=== PATIENT | female | born 1985 | race Caucasian/White ===

== ENCOUNTER 2016-06-30 10:16 | Emergency (ER) | payer SELFPAY ==
--- NOTE | 2016-06-30 10:30 | ED Physician Documentation ---
General Adult - HISTORIAN Historian: patient - HPI Chief Complaint: Fever Onset: days ago (2 days) Timing: pain lasting Severity: moderate Further Comments: yes (2 day history of cough, productive of yellow phlegm, no blood noted. SOB, has some asthma as a child. No sore throat, has body aches, weak, Has had a headache. Has children at home with similar symptoms.) - ROS CONST: fever (not sure how high), chills CVS/RESP: shortness of breath, cough GI/: vomiting (with coughing). denies: abdominal pain, problems urinating NEURO/PSYCH: headache - PAST HX Past History: none Other History: other (history of asthma as a child) Allergies/Adverse Reactions: Allergies Allergy/AdvReac Type Severity Reaction Status Date / Time levofloxacin [From Levaquin] Allergy Verified 10/06/15 16:41 amoxicillin AdvReac Itchy Skin Verified 10/06/15 16:41 Home Medications: Ambulatory Orders Medication Instructions Recorded Azithromycin [Zithromax] 250 mg PO QD #6 tablet 06/30/16 - SOCIAL HX Smoking History: less than 1 pack/day Alcohol Use: none Drug Use: none - FAMILY HX Family History: No - VITAL SIGNS Vital Signs: Vital Signs Temp Pulse Resp BP Pulse Ox 114/75 10/06/15 16:35 - REVIEWED ASSESSMENTS Nursing Assessment Reviewed: Yes Vitals Reviewed: Yes ED Results Lab/Radiology - Radiology Radiology Impressions: chest x-ray normal General Adult Physical Exam - PHYSICAL EXAM GENERAL APPEARANCE: mild distress EENT: pharynx normal, no signs of dehydration. No: pharyngeal erythema NECK: normal inspection, supple. No: lymphadenopathy RESPIRATORY: no resp distress, chest non-tender, wheezes (mild with forced expiration), rales (noted bilaterlly), rhonchi (few scattered on the right) CVS: heart sounds normal, equal pulses, no murmur, tachycardia ABDOMEN: soft, no organomegaly, normal bowel sounds, no abdominal bruit, no distension, non-tender BACK: normal inspection, no CVA tenderness SKIN: warm/dry, normal color EXTREMITIES: non-tender, normal range of motion NEURO: oriented X3, mood/affect nml, cognition normal Discharge Clincal Impression: RML pneumonia Qualifiers: Pneumonia type: due to unspecified organism Qualified Code(s): J18.1 - Lobar pneumonia, unspecified organism Referrals: Primary Doctor,No [Primary Care Provider] - 2 Days Additional Instructions: Drink a lot of fluids, take azithromycin as directed. If your breathing gets worse to let me know. Take some Mucinex as needed to help with the congestion. Home Medications: Ambulatory Orders Azithromycin [Zithromax] 250 mg PO QD #6 tablet 06/30/16 Condition: Stable Disposition: 01 HOME, SELF-CARE Decision to Admit: NO Date of Decison to Admit: 06/30/16 Decision Time: 10:47
[2016-06-30] MEDS ORDERED: IPRATROPIUM/ALBUTEROL SULFATE 3 ML AMPUL.NEB NEB ONE (10:39)
[2016-06-30] MEDS ORDERED: 0.9 % SODIUM CHLORIDE 1,000 ML IV ONE (11:24)
[2016-06-30] MEDS: 0.9 % SODIUM CHLORIDE 1,000 ML IV SCH (11:25)
[2016-06-30 11:31] LABS: MEAN CORPUSCULAR HEMOGLOBIN 30.8 pg (28.0-34.0)
[2016-06-30] MEDS: IPRATROPIUM/ALBUTEROL SULFATE 3 ML AMPUL.NEB NEB ONE (11:34)
[2016-06-30 11:50] LABS: EOSINOPHILS % 1 % (0-7); MONOCYTES % 2 % (0-11); SEGMENTED NEUTROPHILS % 91 % (39-79)
[2016-06-30 11:58] LABS: eGFR (African) > 60; eGFR (Non-African) > 60
--- NOTE | 2016-06-30 13:08 | Diagnostic Imaging Report ---
[facility] [id number] [facility].[address] [id number] Report Submission Date: Jun 30, 2016 12:37:35 PM [employer] Patient Study Name: SHAHID SPANN Date: Jun 30, 2016 11:54:04 AM [employer] Modality Type: CR Gender: F Description: CHEST : 85 Institution: [facility] Physician BYRON BARROS - ER Chest -two views CLINICAL HISTORY: Cough and fever for 3 days. FINDINGS: Examination of the chest in PA and lateral views with no prior film for comparison demonstrates infiltrate the right middle lobe seen best on the lateral view. Cardiovascular and mediastinal silhouettes are within normal limits. The bony thorax is intact. IMPRESSION: Right middle lobe pneumonia. Electronically signed on Jun 30, 2016 12:37:35 PM [employer] by: Prem DANIELLE
[2016-06-30 13:11] VITALS: BP 115/69
== END 2016-06-30 13:06 | disposition home or self-care (01) ==
LOC: ED 10:16
DX: J18.1 Lobar pneumonia, unspecified organism (principal); F17.210 Nicotine dependence, cigarettes, uncomplicated
CPT/HCPCS: 71020; 80053; 85025; 87400; J7030; 99283; 99284; S1016

== ENCOUNTER 2019-01-25 19:46 | Emergency (ER) | payer SELFPAY ==
--- NOTE | 2019-01-25 20:01 | ED Physician Documentation ---
General Adult - HISTORIAN Historian: patient - HPI Stated Complaint: wheezing, sob Chief Complaint: General Adult Onset: hours Timing: still present Severity: moderate Further Comments: yes (Pt is a 33 yo female with hx asthma in childhood who developed sob and wheezing since this am. Pt had a sore throat yesterday and has nasal, sinus congestion. No fever.) - ROS CONST: other (malaise) EYES/ENT: sore throat, nasal congestion CVS/RESP: shortness of breath, other (wheezing) GI/: none MS/SKIN/LYMPH: none - PAST HX Past History: asthma, other (anxiety/depression) Allergies/Adverse Reactions: Allergies Allergy/AdvReac Type Severity Reaction Status Date / Time levofloxacin [From Levaquin] Allergy Rash Verified 01/25/19 20:01 amoxicillin AdvReac Itchy Skin Verified 01/25/19 20:01 Home Medications: Ambulatory Orders Medication Instructions Recorded Hydroxyzine HCl [Atarax] 1 tab PO TID PRN 01/25/19 Propranolol HCl [Inderal] 40 mg PO BID 01/25/19 Vortioxetine Hydrobromide 1 tab PO DAILY 01/25/19 [Brintellix] - SOCIAL HX Smoking History: cigarettes - FAMILY HX Family History: No - VITAL SIGNS Vital Signs: Vital Signs Temp Pulse Resp BP Pulse Ox 115/69 06/30/16 13:06 - REVIEWED ASSESSMENTS Nursing Assessment Reviewed: Yes Vitals Reviewed: Yes Progress - Progress Progress: Duoneb HFN Solu-medrol 125 mg IV Pulmicort HFN Albuterol HFN Albuterol HFN improved Rx Albuterol (90 mcg/spray) MDI. Take 2 puffs every 4 to 6 hours as needed for wheezing. Rx Prednisone 50 mg. Take one daily for 5 days. Rx Azithromycin 250 mg. Take one daily for 5 days. - EKG/XRAY/CT XRAY: chest (No active pulmonary disease.) General Adult Physical Exam - PHYSICAL EXAM GENERAL APPEARANCE: moderate distress EENT: ENT inspection normal, pharynx normal NECK: normal inspection, supple RESPIRATORY: wheezes, rhonchi CVS: reg rate & rhythm, heart sounds normal ABDOMEN: soft, no organomegaly, normal bowel sounds BACK: normal inspection, no CVA tenderness SKIN: warm/dry, normal color EXTREMITIES: non-tender, normal range of motion, no evidence of injury, no edema NEURO: oriented X3, motor nml, sensation nml Discharge Clincal Impression: Asthma Sinusitis Qualifiers: Sinusitis location: unspecified location Chronicity: acute Recurrence: non- recurrent Qualified Code(s): J01.90 - Acute sinusitis, unspecified Referrals: Primary Doctor,No [Primary Care Provider] - 2 Days Condition: Stable Disposition: 01 HOME, SELF-CARE Decision to Admit: NO Decision Time: 23:35
[2019-01-25] MEDS: IPRATROPIUM/ALBUTEROL SULFATE 3 ML AMPUL.NEB NEB ONE (20:31)
[2019-01-25] MEDS: methylPREDNISolone SOD SUCC 125 MG/2 ML VIAL IVP ONE (20:38)
[2019-01-25] MEDS: BUDESONIDE 0.5MG/2ML AMPUL.NEB NEB SCH (21:15)
[2019-01-25] MEDS: ALBUTEROL SULFATE 2.5 MG/3 ML AMPUL.NEB NEB ONE ×2 (22:03→23:14)
[2019-01-25] MEDS: ACETAMINOPHEN 325 MG TABLET PO ONE (22:43)
[2019-01-25] MEDS: AZITHROMYCIN 250 MG TABLET PO ONE (23:24)
[2019-01-25 23:50] VITALS: BP 118/75
[2019-01-26 06:53] LABS: BASOPHILS % 0.5 % (0.0-1.5); NEUTROPHILS # 9.2 # k/uL (1.4-7.7); eGFR (Non-African) > 60
--- NOTE | 2019-01-26 08:07 | Diagnostic Imaging Report ---
REMY OBRIEN [facility] [id number] [facility] [address] [address] Report Submission Date: Jan 25, 2019 8:32:46 PM CDT Patient Study Name: SHAHID SPANN Date: Jan 25, 2019 8:02:48 PM CDT Modality Type: DX Gender: F Description: CHEST 2VIEW : 85 Institution: [facility] Physician: REMY OBRIEN Chest, PA and lateral HISTORY Shortness of breath FINDINGS No infiltrate, effusion or pneumothorax is present. Heart size, mediastinum and pulmonary vascularity are normal. IMPRESSION No active pulmonary disease. Electronically signed on Jan 25, 2019 8:32:46 PM CDT by: Chad DANIELLE
== END 2019-01-25 23:35 | disposition home or self-care (01) ==
LOC: ED 19:46
DX: J01.90 Acute sinusitis, unspecified (principal); J45.909 Unspecified asthma, uncomplicated
CPT/HCPCS: 71046; 80053; 85025; 94640; 96374; 99283; 99284; J2930; J7626; 87040; 87880; S1016